=== PATIENT | female | born 1990 | race Caucasian/White ===

== ENCOUNTER 2017-11-01 11:43 | Outpatient (CLI) ==
--- NOTE | 2017-11-01 12:57 | US ---
EXAM: Ultrasound abdominal wall/lower back HISTORY: Left upper quadrant pain COMPARISON: None FINDINGS: Limited ultrasound abdominal wall performed in the region of clinical concern, left latera l abdominal wall. No mass or fluid collection identified. No sonographic abnormality identified. IMPRESSION: No sonographic abnormality identified in the region of clinical concern.
== END 2017-11-01 11:44 | disposition home or self-care (01) ==
LOC: RAD 11:43
PROVIDERS: ATTEND Emergency Medicine
DX: R10.12 Left upper quadrant pain (principal); S39.011A Strain of muscle, fascia and tendon of abdomen, initial encounter; R19.00 Intra-abdominal and pelvic swelling, mass and lump, unspecified site

== ENCOUNTER 2017-11-08 10:39 | Outpatient (CLI) | END 2017-11-08 10:40 | LOC: RHC-LAB 10:39 | PROVIDERS: ATTEND Emergency Medicine | DX: R10.12 Left upper quadrant pain (principal); Z20.2 Contact with and (suspected) exposure to infections with a predominantly sexual mode of transmission | CPT/HCPCS: 36415; 84703; 86592; 87389; 87800 ==

== ENCOUNTER 2017-11-14 09:08 | Outpatient (CLI) ==
--- NOTE | 2017-11-14 10:05 | CT ---
EXAM: CT of the abdomen pelvis without contrast History: Left upper quadrant abdominal pain, history of appendectomy. Comparison: Abdominal ultrasound 11/01/2017 Technique: Multiplanar CT images through the abdomen pelvis were obtained without the administration of IV contrast Findings: Lung bases are clear. No acute osseous abnormalities. Surrounding soft tissues demonstrat e no acute findings. No hernias are identified. No discrete gallstones identified by CT. No focal liver or splenic lesions. No renal stones and no hydronephrosis. No peripancreatic inflammation. Adrenal glands are unremarkable. No dilated loops of bowel. Scattered colonic stool. No free air and no ascites. No inflammatory stranding. No blad rigoberto wall thickening. Intrauterine device is seen in place. No perirectal inflammation. Impression: No acute intra-abdominal or pelvic process.
== END 2017-11-14 09:09 | disposition home or self-care (01) ==
LOC: RAD 09:08
PROVIDERS: ATTEND Emergency Medicine
DX: R10.12 Left upper quadrant pain (principal)